=== PATIENT | male | born 1940 | race Caucasian/White ===

== ENCOUNTER → 2017-10-12 | Day surgery (SDC) | payer OTHER ==
[~2017-10-12] MED LIST: ATOR40TA16 PO; CHLORHEXIDINE GLUCONATE 2 % 1 PACK (2 CLOTHS) TOPICAL PRN; CILO100T PO; GABA100C4 PO; GLIM2TAB PO; LACTATED RINGER'S 1000 ML IV PRN; LANTUS2P SQ; METF1000 PO; METO50TA PO; METOPROLOL TARTRATE 25 MG TAB PO PRN; OMEP40CA2 PO; POVIDONE IODINE 5% (ANTISEPSIS KIT) 4 APPLICATIONS EACH NARE PRN; SODIUM CHLORID 0.9% 500 ML IV PRN
--- NOTE | 2017-10-12 16:16 | EKG ---
Date Performed: 10/12/2017 Time Performed: 09:25:01 PTAGE: 77 years EKG: Sinus rhythm BORDERLINE LEFT AXIS DEVIATION BORDERLINE ECG NO PREVIOUS TRACING DOCTOR: Enedelia Kaufman Interpretating Date/Time 10/12/2017 16:14:19
== END | disposition home or self-care (01) ==
LOC: HSDC 08:52
PROVIDERS: ATTEND Surgery
DX: I73.9 Peripheral vascular disease, unspecified (principal); Z53.09 Procedure and treatment not carried out because of other contraindication
CPT/HCPCS: 93005; G0463; 99211

== ENCOUNTER 2017-10-26 09:29 | Day surgery (SDC) | payer OTHER ==
[~2017-10-26] VITALS: Ht 174 cm; Wt 84.1 kg
[~2017-10-26 09:29] MED LIST changes: -CHLORHEXIDINE GLUCONATE 2 % 1 PACK (2 CLOTHS) TOPICAL PRN; -LACTATED RINGER'S 1000 ML IV PRN; -METOPROLOL TARTRATE 25 MG TAB PO PRN; -POVIDONE IODINE 5% (ANTISEPSIS KIT) 4 APPLICATIONS EACH NARE PRN; -SODIUM CHLORID 0.9% 500 ML IV PRN
[2017-10-26] MEDS ORDERED: METOPROLOL TARTRATE 25 MG TAB PO PRN (10:15)
[2017-10-26] MEDS ORDERED: POVIDONE IODINE 5% (ANTISEPSIS KIT) 4 APPLICATIONS EACH NARE PRN (10:15)
[2017-10-26] MEDS ORDERED: INSULIN HUMAN REGULAR 1,000 UNITS/10 ML VIAL SQ PRN (10:15)
[2017-10-26] MEDS ORDERED: CHLORHEXIDINE GLUCONATE 2 % 1 PACK (2 CLOTHS) TOPICAL PRN (10:15)
[2017-10-26] MEDS ORDERED: LACTATED RINGER'S 1000 ML IV PRN (10:15)
[2017-10-26] MEDS ORDERED: SODIUM CHLORID 0.9% 500 ML IV PRN (10:15)
[2017-10-26] MEDS ORDERED: METO50TA PO (10:50)
[2017-10-26] MEDS ORDERED: OMEP40CA2 PO (10:50)
[2017-10-26] MEDS ORDERED: GLIM2TAB PO (10:50)
[2017-10-26] MEDS ORDERED: ATOR40TA16 PO (10:50)
[2017-10-26] MEDS ORDERED: METF1000 PO (10:50)
[2017-10-26] MEDS ORDERED: GABA100C4 PO (10:50)
[2017-10-26] MEDS ORDERED: LANTINJ SQ (10:50)
[2017-10-26] MEDS ORDERED: CILO100T PO (10:50)
[2017-10-26 11:02] LABS: AUTOMATED NEUTROPHIL # 6.6 TH/MM3 (1.8-7.7); BASOPHIL % 0.5 % (0.0-2.0); EOSINOPHIL # 0.1 TH/MM3 (0-0.4); EOSINOPHIL % 1.1 % (0.0-4.0); HEMATOCRIT 43.4 % (39.0-51.0); HEMOGLOBIN 15.3 GM/DL (13.0-17.0); LYMPH % 11.2 % (9.0-44.0); LYMPHOCYTE # 0.9 TH/MM3 (1.0-4.8); MEAN CELL VOLUME 95.5 FL (80.0-100.0); MEAN CORPUSCULAR HEMOGLOBIN 33.7 PG (27.0-34.0); MEAN CORPUSCULAR HGB CONC 35.3 % (32.0-36.0); MEAN PLATELET VOLUME 8.4 FL (7.0-11.0); MONO % 6.6 % (0.0-8.0); MONOCYTE # 0.5 TH/MM3 (0-0.9); NEUT % 80.6 % (16.0-70.0); PLATELET COUNT 181 TH/MM3 (150-450); RED BLOOD COUNT 4.55 MIL/MM3 (4.50-5.90); RED CELL DISTRIBUTION WIDTH 14.1 % (11.6-17.2); WHITE BLOOD COUNT 8.2 TH/MM3 (4.0-11.0)
[2017-10-26 11:12] LABS: INTERNATIONAL NORMALIZED RATIO 1.1 RATIO; PROTHROMBIN TIME - PATIENT 10.9 SEC (9.8-11.6)
[2017-10-26 11:15] LABS: BLOOD, URINE NEG (NEG); GLUCOSE,URINE NEG (NEG); HYALINE CAST, URINE 4 /lpf (RARE); KETONE, URINE TRACE mg/dL (NEG); MUCUS URINE FEW /lpf (OCC); NITRITE,URINE NEG (NEG); PH, URINE 5.5 (5.0-8.5); URINE COLOR YELLOW (YELLW/STRAW); URINE LEUKOCYTE ESTERASE NEG (NEG)
[2017-10-26 11:19] LABS: BILIRUBIN, URINE NEG (NEG)
[2017-10-26 11:26] LABS: ALBUMIN 2.7 GM/DL (3.4-5.0); AST (GOT) 20 U/L (15-37); BICARBONATE 27.4 MEQ/L (21.0-32.0); BLOOD UREA NITROGEN 19 MG/DL (7-18); CHLORIDE 104 MEQ/L (98-107); CREATININE 0.84 MG/DL (0.60-1.30); GLOMERULAR FILTRATION RATE 89 ML/MIN (>89); GLUCOSE,RANDOM 124 MG/DL (74-106); SODIUM (NA) 140 MEQ/L (136-145)
[2017-10-26 11:30] LABS: ALKALINE PHOSPHATASE 105 U/L (45-117); ALT (GPT) 19 U/L (12-78); TOTAL BILIRUBIN ADULT 0.6 MG/DL (0.2-1.0); TOTAL PROTEIN 7.1 GM/DL (6.4-8.2)
[2017-10-26] MEDS ORDERED: IOHEXOL 300 MG/ML 100 ML BTL (for Rad CT) IVCONTRAST ONE (12:00)
[2017-10-26] MEDS ORDERED: ceFAZolin INJ 1,000 MG VIAL IV ONE (12:00)
[2017-10-26] MEDS ORDERED: GLYCOPYRROLATE 1 MG/5 ML SYRINGE IV PUSH ONE (12:00)
[2017-10-26] MEDS ORDERED: PHENYLEPH/NS 1000 MCG/10 ML SYR IV ONE (12:00)
[2017-10-26] MEDS ORDERED: LACTATED RINGER'S 1000 ML INJ 1,000 ML IV ONE (12:00)
[2017-10-26] MEDS ORDERED: PROPOFOL 200 MG/20 ML AMP IV ONE (12:00)
[2017-10-26] MEDS ORDERED: LIDOCAINE HCL 1% PF 5 ML SYRINGE OTHER ONE (12:00)
[2017-10-26] MEDS ORDERED: HEPARIN SODIUM - IV 10,000 UNITS/10 ML VIAL ONE (13:14)
[2017-10-26] MEDS ORDERED: PROTAMINE SULFATE 50 MG/5 ML VIAL ONE (13:14)
[2017-10-26] MEDS ORDERED: BUPIVACAINE HCL PF 0.5% 10 ML VIAL ONE (13:15)
[2017-10-26] MEDS ORDERED: HEPARIN-NS/PF INJ 500 ML ONE (13:15)
--- NOTE | 2017-10-26 13:55 | HHI.HP ---
History of Present Illness Chief Complaint: R LE claudication History of Present Illness 77 yo male with R LE claudication at short distances, tried conservative therapy without success. No rest pain. Past/Family/Social History Past Medical History HTN CAD PAD DM XOL Past Surgical History CABG L CEA Social History + tob Family History NC Home Medications Reported Medications Metformin (Metformin) 1,000 Mg Tab, 1000 MG PO BID for Blood Sugar Management, TAB 0 Refills With a meal 10/12/17 Gabapentin (Gabapentin) 100 Mg Cap, 100 MG PO BID, CAP 0 Refills 10/12/17 Atorvastatin (Atorvastatin) 40 Mg Tab, 40 MG PO HS for Cholesterol Management, TAB 0 Refills 10/12/17 Metoprolol Tartrate (Metoprolol Tartrate) 50 Mg Tab, 50 MG PO DAILY, #30 TAB 0 Refills 10/12/17 Glimepiride (Glimepiride) 2 Mg Tab, 2 MG PO DAILY for Blood Sugar Management, # 30 TAB 0 Refills Take with breakfast or first main meal 10/12/17 Cilostazol (Cilostazol) 100 Mg Tab, 100 MG PO BID for INTERMITTENT CLAUDICATION , TAB 0 Refills 10/12/17 Omeprazole (Omeprazole) 40 Mg Cap, 40 MG PO HS, CAP 0 Refills 10/12/17 Insulin Glargine Inj (Lantus Inj) 1,000 Unit/10 Ml Vial, 10 UNITS SQ DAILY for Blood Sugar Management, VIAL 0 Refills 10/12/17 Coded Allergies: No Known Allergies (Unverified , 10/26/17) Review of Systems Constitutional: DENIES: Fever, Chills Cardiovascular: COMPLAINS OF: Claudication, DENIES: PND Musculoskeletal: COMPLAINS OF: Muscle aches Physical Exam Vitals/I&O Date Time Temp Pulse Resp B/P (MAP) Pulse Ox O2 Delivery O2 Flow Rate FiO2 10/26/17 09:57 97.5 71 18 129/73 (91) 95 Neuro: alert, oriented HEENT: NC/AT Neck: L neck incision healed Heart: reg rate Lungs: clear bilat Vascular: palpable UE pulses Extremities: no C/C/E Laboratory Tests Test 10/26/17 10:20 10/26/17 10:35 White Blood Count 8.2 Red Blood Count 4.55 Hemoglobin 15.3 Hematocrit 43.4 Mean Corpuscular Volume 95.5 Mean Corpuscular Hemoglobin 33.7 Mean Corpuscular Hemoglobin Concent 35.3 Red Cell Distribution Width 14.1 Platelet Count 181 Mean Platelet Volume 8.4 Neutrophils (%) (Auto) 80.6 Lymphocytes (%) (Auto) 11.2 Monocytes (%) (Auto) 6.6 Eosinophils (%) (Auto) 1.1 Basophils (%) (Auto) 0.5 Neutrophils # (Auto) 6.6 Lymphocytes # (Auto) 0.9 Monocytes # (Auto) 0.5 Eosinophils # (Auto) 0.1 Basophils # (Auto) 0.0 CBC Comment DIFF FINAL Differential Comment Prothrombin Time 10.9 Prothromb Time International Ratio 1.1 Activated Partial Thromboplast Time 27.3 Blood Urea Nitrogen 19 Creatinine 0.84 Random Glucose 124 Total Protein 7.1 Albumin 2.7 Calcium Level 9.0 Alkaline Phosphatase 105 Aspartate Amino Transf (AST/SGOT) 20 Alanine Aminotransferase (ALT/SGPT) 19 Total Bilirubin 0.6 Sodium Level 140 Potassium Level 3.8 Chloride Level 104 Carbon Dioxide Level 27.4 Anion Gap 9 Estimat Glomerular Filtration Rate 89 Urine Color YELLOW Urine Turbidity CLEAR Urine pH 5.5 Urine Specific Grady 1.023 Urine Protein TRACE Urine Glucose (UA) NEG Urine Ketones TRACE Urine Occult Blood NEG Urine Nitrite NEG Urine Bilirubin NEG Urine Urobilinogen 2.0 Urine Leukocyte Esterase NEG Urine WBC 1 Urine Hyaline Casts 4 Urine Mucus FEW Microscopic Urinalysis Comment CULT NOT INDICATED Caprini VTE Risk Assessment Caprini VTE Risk Assessment: No/Low Risk (score <= 1) Caprini Risk Assessment Model Point Value = 1 Point Value = 2 Point Value = 3 Point Value = 5 Age 41-60 Minor surgery BMI > 25 kg/m2 Swollen legs Varicose veins or History of unexplained or recurrent spontaneous Oral contraceptives or hormone replacement Sepsis (< 1 month) Serious lung disease, including pneumonia (< 1 month) Abnormal pulmonary function Acute myocardial infarction Congestive heart failure (< 1 month) History of inflammatory bowel disease Medical patient at bed rest Age 61-74 Arthroscopic surgery Major open surgery (> 45 min) Laparoscopic surgery (> 45 min) Malignancy Confined to bed (> 72 hours) Immobilizing plaster cast Central venous access Age >= 75 History of VTE Family history of VTE Factor V Leiden Prothrombin 49291A Lupus anticoagulant Anticardiolipin antibodies Elevated serum homocysteine Heparin-induced thrombocytopenia Other congenital or acquired thrombophilia Stroke (< 1 month) Elective arthroplasty Hip, pelvis, or leg fracture Acute spinal cord injury (< 1 month) Prophylaxis Regimen Total Risk Factor Score Risk Level Prophylaxis Regimen 0-1 Low Early ambulation 2 Moderate Order ONE of the following: *Sequential Compression Device (SCD) *Heparin 5000 units SQ BID 3-4 Higher Order ONE of the following medications: *Heparin 5000 units SQ TID *Enoxaparin/Lovenox 40 mg SQ daily (WT < 150 kg, CrCl > 30 mL/min) *Enoxaparin/Lovenox 30 mg SQ daily (WT < 150 kg, CrCl > 10-29 mL/min) *Enoxaparin/Lovenox 30 mg SQ BID (WT < 150 kg, CrCl > 30 mL/min) AND/OR *Sequential Compression Device (SCD) 5 or more Highest Order ONE of the following medications: *Heparin 5000 units SQ TID (Preferred with Epidurals) *Enoxaparin/Lovenox 40 mg SQ daily (WT < 150 kg, CrCl > 30 mL/min) *Enoxaparin/Lovenox 30 mg SQ daily (WT < 150 kg, CrCl > 10-29 mL/min) *Enoxaparin/Lovenox 30 mg SQ BID (WT < 150 kg, CrCl > 30 mL/min) AND *Sequential Compression Device (SCD) Assessment and Plan Plan R LE angiogram, likely iliac intervention Discussed with patient, who understands risks/benefits To OR Matthew Eagle MD Oct 26, 2017 13:55
[2017-10-26] MEDS ORDERED: IOHEXOL 300 INJ 50 ML IV ONE ×3 (14:26→15:15)
[2017-10-26] MEDS ORDERED: ceFAZolin 2 GM PREMIX 50 ML IV ONE (14:50)
--- NOTE | 2017-10-26 15:11 | HHI.PR ---
cc: Matthew Eagle MD Immediate Post Op Note Procedure Date: Oct 26, 2017 Pre Op Diagnosis: B LE claudication, PAD Post Op Diagnosis: B LE claudication, PAD Surgeon: Matthew Eagle Cloth Winding Supervisor(s): none Procedure: Aortogram R SEBASTIAN orbital atherectomy and TWINE WINDER/stent (10x40 Zilver) L SEBASTIAN orbital atherectomy and TWINE WINDER/stent (10x40 Zilver) B ADVANCED PRACTICE NURSE Angioseal Findings: heavily calcified lesions in B SEBASTIAN, successful TWINE WINDER/stent after orbital atherectomy Additional Information: palpable 2+ femoral pulses after procedure Complications: none Specimen(s) removed: none Estimated blood loss: 10mL Anesthesia: MAC Drains: None Patient to: PACU Patient Condition: Good Implant/Devices: SEE IMPLANT LOG (if applicable) Date/Time of Procedure: SEE SURGICAL CARE RECORD Matthew Eagle MD Oct 26, 2017 15:11
[2017-10-26] MEDS ORDERED: CLOPIDOGREL 75 MG TAB PO ONE (15:15)
[2017-10-26 15:20] VITALS: TEMP 97.4
[2017-10-26] MEDS ORDERED: *morphine SULFATE 10 MG/ML PERIprocedure ONLY ONE (15:29)
[2017-10-26] MEDS ORDERED: *ENALAPRILAT 1.25 MG/ML VIAL PERIprocedural Use ONLY ONE ×2 (16:17→16:53)
[2017-10-26] MEDS ORDERED: DO NOT ADM ANY ANTICOAGULANT DRUGS PRN (16:30)
[2017-10-26] MEDS ORDERED: PLAV75TA29 PO (17:25)
[2017-10-26 17:30] VITALS: BP 160/84; PULSE 68; RESP 16; O2SAT 94
[2017-10-27] MEDS ORDERED: CLOPIDOGREL 75 MG TAB PO SCH (09:00)
--- NOTE | 2017-10-29 22:24 | MP ---
cc: MELISSA EAGLE MD DATE OF SURGERY 10/26/2017 PREOPERATIVE DIAGNOSIS Bilateral extremity peripheral arterial occlusive disease. POSTOPERATIVE DIAGNOSIS Bilateral extremity peripheral arterial occlusive disease. PROCEDURE 1. Aortogram. 2. Right common iliac orbital atherectomy and angioplasty and stent with a 10 x 40 Zilver. 3. Left common femoral artery orbital atherectomy and angioplasty and stent with a 10 x 40 Zilver. 4. Bilateral common femoral artery Angio-Seal. ATTENDING SURGEON Melissa Eagle MD ANESTHESIA Local with sedation INDICATION Mr. Wood is a 77-year-old gentleman with bilateral lower extremity claudication, right worse left, is taken to the operating room for angiographic evaluation and treatment. There is no prior cath based imaging available for my review. DESCRIPTION OF THE PROCEDURE Informed consent was obtained. The patient was taken to the operating room and placed supine on the operating table. Appropriate time-out was taken to ensure the patient's identity, the operative site and planned procedure. The administration of 2 grams of Ancef was initiated prior to stent implantation and will be discontinued after a single preoperative dose. Everyone in the room agreed with time-out and we proceeded. His bilateral groins were prepped, draped and the right groin was anesthetized with 1% lidocaine. A 21 gauge micropuncture needle was used to access the right common femoral artery. This was exchanged using Seldinger technique for a micropuncture sheath through which a 0.035 Glidewire was introduced and the micropuncture sheath was changed for a 5-Pu[place]ican sheath. A Berenstein catheter was placed over the wire and the Berenstein catheter and TOOLING MECHANIC wire were used to navigate past the high-grade iliac calcific occlusion up to the aorta. This was confirmed angiographically. The left groin was anesthetized with 1% lidocaine and a 21 gauge micropuncture needle was used to access left common femoral artery. This was exchanged using Seldinger technique for a micropuncture sheath through which a 0.035 Glidewire was introduced and micropuncture sheath was exchanged for a 6-[place]ican sheath. Through the right-hand side of Berenstein catheter a Storq wire was passed and the Berenstein catheter and 5-[place]ican sheath were removed and 6-[place]ican sheath was introduced. The patient was systemically heparinized with 5000 units of IV heparin. The right sided wire was exchanged for a viper wire and the CSI device was then inserted and the common iliac artery was atherectomized without difficulty and then a 10 x 40 Zilver self-expanding stent was placed in the proximal common iliac artery and post dilated to 9 mm. Completion angiogram showed excellent result without any recoil extravasation. On the left-hand side the wire was exchanged for a viper wire and similarly the common iliac artery was atherectomized with the LiveIntentI orbital atherectomy device and then postdilated with a 9-mm balloon with no residual stenosis and this was treated with 10 x 40 Zilver self-expanding stent. This was post dilated to 9 mm. Completion angiograms showed excellent result. The patient had palpable and normal femoral pulses at the conclusion of the procedure. The wire, catheter and sheath were removed and groin was closed with AngioSeal. There were no complications. I was present and scrubbed for the entire procedure. INTERPRETATION OF IMAGES The patient has patent infrarenal aorta high-grade calcific iliac stenoses bilaterally with the right more than the left and patent distal common iliac arteries, external iliac arteries and hypogastric arteries. After atherectomy, angioplasty and stenting there is no residual stenosis and no flow-limiting dissection or extravasation. MD VISH Shelton/RANDY /6:59 PM /9:53 PM MTDBrandt
== END 2017-10-26 17:55 | disposition home or self-care (01) ==
LOC: HSDC 09:29
PROVIDERS: ATTEND Surgery
DX: I70.213 Atherosclerosis of native arteries of extremities with intermittent claudication, bilateral legs (principal); I25.10 Atherosclerotic heart disease of native coronary artery without angina pectoris; I10 Essential (primary) hypertension; E11.51 Type 2 diabetes mellitus with diabetic peripheral angiopathy without gangrene; Z79.4 Long term (current) use of insulin; Z95.1 Presence of aortocoronary bypass graft; Z87.891 Personal history of nicotine dependence
CPT/HCPCS: 01270; 37221; 37227; 75625; 75716; 80053; 81001; 85025; 85610; 85730; 86850; 86900; 86901; C1725; C1769; C1876; J0690; J1644; J2270; J2370; J2720; J7120; Q9967